=== PATIENT | female | born 1965 | race Caucasian/White ===

== ENCOUNTER 2022-07-01 11:21 | Outpatient (CLI) | payer BC, SELFPAY ==
[2022-07-01 12:04] LABS: Albumin* 4.5 g/dL (3.3-5.0); Chloride* 102 mmol/L (96-114)
[2022-07-01 12:05] LABS: Potassium* 4.3 mmol/L (3.6-5.1); Sodium* 141 mmol/L (135-149)
[2022-07-01 12:07] LABS: Alkaline Phosphatase* 85 U/L (40-150); Aspartate Amino Transferase* 31 U/L (12-35); Bilirubin Total* 0.8 mg/dL (0.1-1.5); Blood Urea Nitrogen* 22 mg/dL (7-30); Carbon Dioxide* 28 mmol/L (20-32); Cholesterol* 207 mg/dL (90-199); Creatinine* 0.6 mg/dL (0.5-1.5); Estimated Glomerular Filt Rate 106 ml/min; Total Protein* 7.6 g/dL (6.0-8.3)
[2022-07-01 12:08] LABS: Alanine Aminotransferase* 41 U/L (4-35); Calcium* 9.8 mg/dL (8.4-10.6); Glucose* 89 mg/dL (60-115); HDL Cholesterol* 50 mg/dL (>=50); LDL Cholesterol Calculated 123 mg/dL (<100); Triglycerides* 170 mg/dL (40-149)
== END 2022-07-01 11:22 | disposition home or self-care (01) ==
PROVIDERS: PCP Family Medicine; Visit Provider Family Medicine
DX: Z01.419 Encounter for gynecological examination (general) (routine) without abnormal findings (principal); I10 Essential (primary) hypertension; E78.5 Hyperlipidemia, unspecified; E66.9 Obesity, unspecified; F41.9 Anxiety disorder, unspecified
CPT/HCPCS: 80053; 80061

== ENCOUNTER 2022-11-02 14:21 | Outpatient (CLI) | payer BC, SELFPAY ==
--- NOTE | 2022-11-02 14:40 | CRLHL7_ITS ---
For Patients: As a result of the Century Cures Act, medical imaging exams and procedure reports are released immediately into your electronic medical record. You may view this report before your referring provider. If you have questions, please contact your health care provider. BILATERAL SCREENING MAMMOGRAM WITH COMPUTER-AIDED DETECTION AND TOMOSYNTHESIS TECHNIQUE: CC and MLO views were obtained. These mammographic images have been obtained using full-field digital technique. These mammographic images were interpreted with the benefit of computer-aided detection. Breast Tomosynthesis was used in this interpretation. COMPARISON FILM: 08/03/21, 04/23/20, 03/12/19. FINDINGS: There are scattered areas of fibroglandular density IMPRESSION: There is no radiographic evidence for malignancy. ASSESSMENT: BI-RADS Category 2: Benign RECOMMENDATION: Routine screening mammogram in 1 year. A lay language report of this examination will be provided to the patient. Jostin Sharpe M.D. Diagnostic/Nuclear Medicine Radiologist [email or web address] NOAM/Dictated by: Jostin Sharpe MD @ 11/03/2022 8:24:00 AM (Electronically Signed)
== END 2022-11-02 14:22 | disposition home or self-care (01) ==
PROVIDERS: PCP Family Medicine; Visit Provider Family Medicine
DX: Z12.31 Encounter for screening mammogram for malignant neoplasm of breast (principal)
CPT/HCPCS: 77063; 77067

== ENCOUNTER 2023-07-24 07:30 | Outpatient (CLI) | payer BC, SELFPAY | END 2023-07-24 07:31 | disposition home or self-care (01) | LOC: NFLDREF 07-28 10:05 | PROVIDERS: PCP Family Medicine; Referring Provider Family Medicine; Visit Provider Family Medicine | DX: I10 Essential (primary) hypertension (principal); E78.5 Hyperlipidemia, unspecified; K76.9 Liver disease, unspecified | CPT/HCPCS: 80053; 80061 ==

== ENCOUNTER 2024-01-18 08:01 | Outpatient (CLI) | payer OTHER, SELFPAY ==
--- OUTSIDE RECORDS SUMMARY | 2024-01-18 08:05 | XMS_ITS | Clinical Summary ---
Author Name Unknown Organization [email or web address] [facility] [employer] [facility] Address [place], [place] [address] Care Team Providers Care Electronics Assembler Name Role Phone Julio Brown MD Unavailable [phone] [facility] Provider Un available Allergies No known active allergies Medications Medication Sig Dispensed Refills Start Date End Date Status cholecalciferol (VITAMIN D-3) 400 unit tablet Take 1 tablet by mouth once daily. 0 02/28/2017 Active Mdjln-0-WFM-EPA-Fish Oil (FISH OIL) 1,000 mg (120 mg-180 mg) cap Take 1 capsule by mouth. 0 02/28/2017 Active glucosamine-chondroiti n, 500-400 mg, (COSAMIN DS 500/400) 500-400 mg cap Take 1 capsule by mouth once daily. 0 08/08/2017 Active ALPRAZolam (XANAX) 0.25 mg tabletIndications:Shefali c disorder without agoraphobia Take 1 tablet by mouth 3 times daily if needed. 90 tablet 08/08/2017 Active hydroCHLOROthiazide (HCTZ) 25 mg tabletIndications:Esse ntial hypertension Take 1 tablet by mouth once daily. 90 tablet 11/14/2018 Active lisinopril (PRINIVIL; ZESTRIL) 10 mg tabletIndications:Esse ntial hypertension Take 1 tablet by mouth once daily. 90 tablet 11/14/2018 Active cholecalciferol (VITAMIN D3) 1,000 unit tablet Take 1 tablet by mouth once daily. 0 04/20/2020 Active Pxylo-7-NHY-EPA-Fish Oil (FISH OIL) 1,000 mg (120 mg-180 mg) cap Take 1 capsule by mouth once daily. 0 04/20/2020 Active Active Problems Problem Noted Date Diagnosed Date Dermatophytosis of foot 01/09/2007 Panic disorder without agoraphobia 11/14/2006 Unspecified essential hypertension 11/14/2006 Resolved Problems Problem Noted Date Diagnosed Date Resolved Date Genital herpes, unspecified 11/14/2006 08/08/2017 Immunizations Name Administration Dates Next Due AMB Influenza, IIV3 (Age >=3 years)(Flu Clinic Only) 06/22/2011,06/27/2008 HepA-HepB (Twinrix) 01/27/2010,07/06/2009,2008 Influenza, IIV3 (Age >=3 years) 07/05/20 13,07/04/2012,06/30/2010, 9 Influenza, IIV4 05/25/2017, 6,07/29/2015, 4 Td (Age >=7 Years) 01/30/2004 Tdap 07/04/2012 Family History Medical History Relation Name Comments Gallbladder disease Brother Hyperlipidemia Father Hypertension Father Other Father MIGRAINES Cancer-breast Mother pre-cancerous cells removed Gallbladder disease Mother Hyperlipidemia Mother Hypertension Mother Other Mother MIGRAINES/breas t bx, pre cancerous Diabetes Other GRANDPARENT Gallbladder disease Sister Hypertension Sister Relation Name Status Comments Brother Father Alive Mother Alive Other Sister Social History Tobacco Use Types Packs/Day Years Used Date Smoking Tobacco: Never Smokeless Tobacco: Never Tobacco Cessation:Counseling Given: Yes Alcohol Use Standard Drinks/Week Comments Yes 0 (1 standard drink = 0.6 oz pur e alcohol) rarely Social Connections Answer Date Recorded Frequency of Communication with Friends and Fami ly Not on file 09/04/2021 Financial Resource Strain Answer Date R ecorded Difficulty of Paying Living Expenses Not on file 09/04/2021 Difficulty of Paying Living Expenses Not on file 09/04/2021 Sex and Gender Information Value Date Recorded Sex Assigned at Not on file Gender Identity Not on file Sexual Orientation Not on file Obstetrics History Para Term AB IAB SAB Ectopic Multiple Livin g Live Births 2 1 1 1 1 Date Outcome GA Total Labor Labor/2nd/3rd Weight Sex Delivery Anes PTL Shantal A1 A5 Name Cl in Para SAB Last Filed Vital Signs Vital Sign Reading Time Taken Comments Blood Pressure 132/98 04/20/2020 10:18 AM CDT Pulse 114 04/20/2020 10:18 AM CDT Temperature 37.3 ??C (99.2 ??F) 04/20/2020 10:18 AM C DT Respiratory Rate - - Oxygen Saturation 100% 08/08/2017 8:48 AM MAINTENANCE PARTS TECHNICIAN Inhaled Oxygen Concentration - - Weight 112.9 kg (249 lb) 04/20/2020 10:18 AM CDT Height 172.7 cm (5' 8) 01/21/2019 10:08 AM CDT Body Mass Index 37.86 01/21/2019 10:08 AM CDT Plan of Treatment Health Maintenance Due Date Last Done Comments Hepatitis C screening for age 18-79 1985 Colonoscopy through age 75 2012 Zoster (shingles) series for age 50+ (1 of 2) 2017 Depression screening for age 12+ 08/08/2018 08/08/2017, 08/02/2016 Mammogram for age 45-75 08/08/2018 08/08/20 17, 08/02/2016, 07/21/2015, Additional history exists BMI (ht and wt on same day) for age 18+ 01/22/2020 01/21/2019, 01/22/2018, 08/08/2017, Additional history exists Tetanus booster 07/04/2022 07/04/2012, 01/30/2004 Lipids for age 45-75 08/08/2022 08/08/2017, 07/26/2016, 07/21/2015, Additional history exists COVID-19 vaccine series (2022- season) 2023 Influenza for age 50-64 05/05/2024 05/25/20 17, 08/02/2016, 07/29/2015, Additional history exists HIV for age 15-65 Completed 05/23/2008 Tdap Completed 07/04/2012 Pneumococcal series for age 6-64 Aged Out No longer eligible based on patient's age to complete this topic Procedures Procedure Name Priority Date/Time Associated Diagnosis Comments LIPID PANEL W REFLEX MEASURED LDL Routine 08/08/2017 9:32 AM MAINTENANCE PARTS TECHNICIAN Lipid screening XR MAMMO BILAT SCREENING Routine 08/08/2017 8:35 AM MAINTENANCE PARTS TECHNICIAN Screening breast examination ANTI HIV 1/2 Routine 05/23/2008 8:55 AM CDT Routine General Medical Examination at a Health Care Facility from Last 3 Months or Most Recently Relevant to Health Maintenance Results * (ABNORMAL) LIPID PANEL W REFLEX MEASURED LDL (08/08/2017 9:32 AM MAINTENANCE PARTS TECHNICIAN) CHOLESTEROL,TOTAL 201(H) 100 - 199 mg/dL 08/08/2017 4:17 PM MAINTENANCE PARTS TECHNICIAN [facility] TRIGLYCERIDES 136 <150 mg/dL 08/08/2017 4:17 PM MAINTENANCE PARTS TECHNICIAN [facility] HDL CHOLESTEROL 53 >40 mg/dL 7 4:17 PM MAINTENANCE PARTS TECHNICIAN [facility] NON-HDL CHOLESTEROL 148(H) <145 mg/dl 08/08/2017 4:17 PM MAINTENANCE PARTS TECHNICIAN [facility] CHOL/HDL RATIO 3.79 <4.50 08/08/2017 4:17 PM MAINTENANCE PARTS TECHNICIAN [facility] LDL CHOLESTEROL 121 <=130 mg/dL 08/08/2017 4:17 PM MAINTENANCE PARTS TECHNICIAN [facility] TR[facility]ORY PROVIDER ORDERED STATUS RANDOM 08/08/2017 4:17 PM MAINTENANCE PARTS TECHNICIAN [facility] Blood BLOOD SPECIMEN / Unknown Venipuncture / Unknown 08/08/2017 9:32 AM MAINTENANCE PARTS TECHNICIAN 08/08/2017 9:32 AM MAINTENANCE PARTS TECHNICIAN Bonnie Wade NP [facility] [address] [place] [address], * XR MAMMO BILAT SCREENING (08/08/2017 8:35 AM MAINTENANCE PARTS TECHNICIAN) Anatomical Region Laterality Modality BREASTS, Breast Left, Breast Right Bilateral Mammography Impressions 08/08/2017 12:20 PM MAINTENANCE PARTS TECHNICIAN ??There is no radiographic evidence for malignancy. ??Recommend annual mammograms. A lay language report of this examination will be provided to the patient. MAMMOGRAM ASSESSMENT: ??ACR 2 Benign Narrative 08/08/2017 12:20 PM MAINTENANCE PARTS TECHNICIAN XR MAMMO BILAT SCREENING [[id number]] CLINICAL HISTORY: ??This is an asymptomatic 52 y.o. patient. INDICATION FOR EXAM: Mammogram Screening. TECHNIQUE: CC & MLO views were obtained. ??This digital study was evaluated with the assistance of Computer-Aided Detection. COMPARISON FILMS: Yes 08/02/16 [facility] 07/21/15 [facility] FINDINGS: ??Mammographically, the breast tissue has scattered fibroglandular densities. ??No suspicious masses or microcalcifications. ?? Benign appearing calcifications within both breasts. Bonnie Wade NP MAMMO * ANTI HIV 1/2 (05/23/2008 8:55 AM CDT) ANTI HIV 1/2 Non-reacti ve [facility] Blood specimen (specimen) BLOOD SPECIMEN / Unknown 05/23/2008 8:55 AM CDT 05/23/2008 8:54 AM CDT Bonnie Wade NP SEND OUTS [facility] INTERNAL ZIP [address] [address] from Last 3 Months or Most Recently Relevant to Health Maintenance Care Teams Electronics Assembler Relationship Specialty Start Date End Date Stephanie [facility] Phys Of PCP - General 01/17/19 Julio Brown MD Surgery - General 08/08/17
--- NOTE | 2024-01-18 08:15 | MM_ITS ---
Patient: JUSTO ALVES Facility:?[facility] Patient ID:?[id number] Site Patient ID:?[id number] Site :?[id number] Study:?XRay-Breast Bilateral 3D W/CAD-01/18/2024 8:53:00 AM Ordering Physician:Petr Final Report: BILATERAL DIGITAL SCREENING MAMMOGRAM WITH TOMOSYNTHESIS AND COMPUTER-AIDED DETECTION CLINICAL HISTORY: Routine screening exam. COMPARISON: 11/02/2022, 08/03/2021, 04/23/2020, 03/12/2019. TECHNIQUE: Digital mammogram in CC and MLO projections including computer-aided detection (CAD). Tomosynthesis utilized. BREAST COMPOSITION: There are areas of scattered fibroglandular density. FINDINGS: RIGHT Breast: No suspicious findings. LEFT Breast: Grouped microcalcifications are present within the upper outer quadrant 12 cm from the nipple. IMPRESSION: LEFT breast calcifications. RECOMMENDATIONS: Spot compression magnification views of the calcifications in the LEFT breast in CC and ML projections. BI-RADS Category 0: Incomplete: Need additional Imaging Evaluation and/or Prior Mammograms for Comparison [facility] will contact the patient for follow-up. A lay language report of this examination will be provided to the patient. Dictated by Misael Motta MD @ 01/18/2024 10:24:24 AM kavita/Dictated by: Misael Motta MD @ 01/18/2024 10:24:00 AM Signed by:?Misael Motta MD @01/18/2024 12:27:41 PM (Electronic Signature)
== END 2024-01-18 08:02 | disposition home or self-care (01) ==
LOC: MAMMO 08:04
PROVIDERS: PCP Family Medicine; Visit Provider Family Medicine
DX: Z12.31 Encounter for screening mammogram for malignant neoplasm of breast (principal); N63.20 Unspecified lump in the left breast, unspecified quadrant
CPT/HCPCS: 77063; 77067

== ENCOUNTER 2024-02-05 08:26 | Outpatient (CLI) | payer OTHER, SELFPAY ==
--- NOTE | 2024-02-05 | CRLHL7_ITS ---
For Patients: As a result of the Cures Act, medical imaging exams and procedure reports are released immediately into your electronic medical record. You may view this report before your referring provider. If you have questions, please contact your health care provider. PLEASE SEE DIGITAL DIAGNOSTIC LEFT MAMMOGRAM PERFORMED SAME DAY CRL:vu womack/Dictated by: Misael Motta MD @ 02/05/2024 10:30:00 AM (Electronically Signed)
--- OUTSIDE RECORDS SUMMARY | 2024-02-05 08:28 | XMS_ITS | Clinical Summary ---
Author Organization [employer] [facility] [employer] [facility] Address [place], [place] [address] Care Team Providers Care Technical Training Manager Name Role Phone Julio Brown MD Unavailable [phone] [facility] Phys Of Primary Care Provider Un available Allergies No known active allergies Medications Medication Sig Dispensed Refills Start Date End Date Status cholecalciferol (VITAMIN D-3) 400 unit tablet Take 1 tablet by mouth once daily. 0 02/28/2017 Active Cmxpb-5-YFW-EPA-Fish Oil (FISH OIL) 1,000 mg (120 mg-180 [...] by mouth once daily. 0 04/20/2020 Active Rygho-0-MWM-EPA-Fish Oil (FISH OIL) 1,000 mg (120 mg-180 [...] - Oxygen Saturation 100% 08/08/2017 8:48 AM DIET ASSISTANT Inhaled Oxygen Concentration - - Weight 112.9 [...] REFLEX MEASURED LDL Routine 08/08/2017 9:32 AM DIET ASSISTANT Lipid screening XR MAMMO BILAT SCREENING Routine 08/08/2017 8:35 AM DIET ASSISTANT Screening breast examination ANTI HIV 1/2 Routine 05/23/2008 8:55 AM CDT Routine General Medical Examination at a Health Care Facility from Last 3 Months or Most Recently Relevant to Health Maintenance Results * (ABNORMAL) LIPID PANEL W REFLEX MEASURED LDL (08/08/2017 9:32 AM DIET ASSISTANT) CHOLESTEROL,TOTAL 201(H) 100 - 199 mg/dL 08/08/2017 4:17 PM DIET ASSISTANT [facility] [place] [facility] TRAL [facility]ATORY TRIGLYCERIDES 136 <150 mg/dL 08/08/2017 4:17 PM DIET ASSISTANT [facility] TR[facility] HDL CHOLESTEROL 53 >40 mg/dL 7 4:17 PM DIET ASSISTANT [facility] NON-HDL CHOLESTEROL 148(H) <145 mg/dl 08/08/2017 4:17 PM DIET ASSISTANT [facility] CHOL/HDL RATIO 3.79 <4.50 08/08/2017 4:17 PM DIET ASSISTANT [facility] LDL CHOLESTEROL 121 <=130 mg/dL 08/08/2017 4:17 PM DIET ASSISTANT [facility] TR[facility] PROVIDER ORDERED STATUS RANDOM 08/08/2017 4:17 PM DIET ASSISTANT [facility] Blood BLOOD SPECIMEN / Unknown Venipuncture / Unknown 08/08/2017 9:32 AM DIET ASSISTANT 08/08/2017 9:32 AM DIET ASSISTANT Bonnie Wade NP [facility] [address] [place] [address], * XR MAMMO BILAT SCREENING (08/08/2017 8:35 AM DIET ASSISTANT) Anatomical Region Laterality Modality BREASTS, Breast Left, Breast Right Bilateral Mammography Impressions 08/08/2017 12:20 PM DIET ASSISTANT ??There is no radiographic evidence for malignancy. ??Recommend annual mammograms. A lay language report of this examination will be provided to the patient. MAMMOGRAM ASSESSMENT: ??ACR 2 Benign Narrative 08/08/2017 12:20 PM DIET ASSISTANT XR MAMMO BILAT SCREENING [[id number]] CLINICAL HISTORY: ??This is an asymptomatic 52 y.o. patient. INDICATION FOR EXAM: Mammogram Screening. TECHNIQUE: CC & MLO views were obtained. ??This digital study was evaluated with the assistance of Computer-Aided Detection. COMPARISON FILMS: Yes 08/02/16 [facility] 07/21/15 [facility] FINDINGS: ??Mammographically, the breast tissue has scattered fibroglandular densities. ??No suspicious masses or microcalcifications. ?? Benign appearing calcifications within both breasts. Bonnie Wade NP MAMMO * ANTI HIV 1/2 (05/23/2008 8:55 AM CDT) ANTI HIV 1/2 Non-reacti ve [facility] Blood specimen (specimen) BLOOD SPECIMEN / Unknown 05/23/2008 8:55 AM CDT 05/23/2008 8:54 AM CDT Bonnie Wade NP SEND OUTS [facility] INTERNAL ZIP [address] [place] [id number] from Last 3 Months or Most Recently Relevant to Health Maintenance Care Teams Technical Training Manager Relationship Specialty Start Date End Date Stephanie [facility] Phys Of PCP - General 01/17/19 Julio Brown MD Surgery - General 08/08/17
--- NOTE | 2024-02-05 08:45 | CRLHL7_ITS ---
For Patients: As a result of the Century Cures Act, medical imaging exams and procedure reports are released immediately into your electronic medical record. You may view this report before your referring provider. If you have questions, please contact your health care provider. DIGITAL DIAGNOSTIC LEFT MAMMMOGRAM USING COMPUTER-AIDED DETECTION LEFT BREAST ULTRASOUND CLINICAL HISTORY: LEFT breast microcalcifications with asymmetry. COMPARISON: 01/18/2024, 11/02/2022, 08/03/2021, 04/23/2020. TECHNIQUE: Digital LEFT mammogram in three projections with computer-aided detection. Real-time ultrasound imaging of LEFT breast with imaging documentation. Scanning was performed by both the technologist and the radiologist. BREAST COMPOSITION: There are areas of scattered fibroglandular density. FINDINGS: Spot magnification CC/ML LEFT breast mammogram images submitted along with an open true lateral LEFT breast mammogram. There are a few scattered punctate microcalcifications within the upper outer quadrant 12 cm from the nipple which do not demonstrate layering. These are new compared to prior studies. Associated asymmetric density is present which is possibly similar to prior studies although may be slightly more prominent. Targeted LEFT breast ultrasound performed. At 2 o`clock 12 cm from the nipple there is an area slightly heterogeneous tissue which may correspond with the mammogram although it is not definitive and not measurable. IMPRESSION: Indeterminate small grouping of calcifications LEFT breast upper outer quadrant 12 cm from the nipple with associated density. RECOMMENDATIONS: Stereotactic-guided biopsy recommended. Results and recommendations discussed with the patient. BI-RADS Category 4: Suspicious A lay language report of this examination will be provided to the patient. Dictated by Misael Motta MD @ 02/05/2024 10:30:18 AM jj/Dictated by: Misael Motta MD @ 02/05/2024 10:30:00 AM (Electronically Signed)
== END 2024-02-05 08:27 | disposition home or self-care (01) ==
LOC: MAMMO 08:26
PROVIDERS: PCP Family Medicine; Visit Provider Family Medicine
DX: R92.0 Mammographic microcalcification found on diagnostic imaging of breast (principal)
CPT/HCPCS: 76642; 77065; G0279

== ENCOUNTER 2024-08-05 11:20 | Outpatient (CLI) | payer OTHER, SELFPAY ==
--- OUTSIDE RECORDS SUMMARY | 2024-08-06 19:33 | XMS_ITS | Clinical Summary ---
Author Organization [facility] Address [address] [place] [address] Care Team Providers Care Distribution Tech Name Role Phone None Reported, Pcp Primary Care Provider Unavail able Source Comments Patient records contain information from all sites at [facility]. For routine questions regarding patient records, call [phone] during business hours, M-F 8:00 AM - 5:00 PM Central Time. Record requests for emergency care only can be directed to [phone] at any time.[facility] Allergies No known active allergies Medications * This document contains information received from the source organization and may not represent a complete record from that organization. lisinopriL 10 mg tablet Take 1 tablet by mouth daily. 11/14/2018 Active hydroCHLOROthia zide (HydroDiuril) 25 mg tablet Take 1 tablet by mouth daily. 11/14/2018 Active glucosamine-cho ndroitin 500-400 mg per capsule Take 1 capsule by mouth daily. 08/08/2017 Active DOCOSAHEXAENOIC ACID ORAL Take 1 capsule by mouth daily. 04/20/2020 Active cholecalciferol , vitamin D3, 25 mcg (1,000 Unit) tablet Take 1 tablet by mouth daily. 04/20/2020 Active ALPRAZolam (Xanax) 0.25 mg tablet Take 0.25 mg by mouth 3 (three) times a day as needed. 08/08/2017 Active MAGNESIUM CITRATE ORAL Take 100 mg by mouth once. Active ibuprofen 200 mg tablet Take 200 mg by mouth every 6 (six) hours as needed for pain. Active capsicum, cayenne, 450 mg capsule Take by mouth daily. Active tamoxifen (Nolvadex) 20 mg tablet Take 1 tablet (20 mg total) by mouth daily. Swallow whole; do not split, chew, or crush. Take with or without food. 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 Date Type Department Care Team Description 06/10/2024 4:00 PM CDT Telemedicine Breast Diagnostic Clinic in [place], [place] [address] [place] [address] Yamini Raines M.D. Other Benign Mammary Dysplasias (Atypical Ductal Hyperplasia) Of Left Breast (Primary Dx); Atypical Lobular Hyperplasia Breast; Screening Mammogram High Risk Patient 06/06/2024 7:17 PM CDT - 06/06/2024 11:59 PM CDT Hospital Encounter Department of Radiology, [facility], in [place], [place] [address] [place] [address] Yamini Raines M.D. Other Benign Mammary Dysplasias (Atypical Ductal Hyperplasia) Of Left Breast; Cancer Breast Family History Discharge Disposition: Home or Self Care 05/07/2024 Documentation Division of Breast and Melanoma Surgical Oncology in [place], [place] [address] [place] [address] Santa Oakley M.D. Follow-up from Last 3 Months Family History Medical History Relation Name Comments Cancer Father's Brother 2 unknown t ype Lung cancer Father's Sister 1 unsure abo ut smoking hx Skin cancer Maternal Grandmother non-dorian anoma Breast CA Add'l Onset Mother Breast cancer Mother Lung cancer Paternal Grandmother smoker Relation Name Status Comments Brother Alive Daughter Alive Father Alive Father's Brother 1 Father's Brother 2 Father's Sister 1 Father's Sister 2 Alive Maternal Grandfather (Age 80-84) Maternal Grandmother (Age 99) Mother Alive no GT Mother's Brother Alive Mother's Sister 1 Alive Mother's Sister 2 Niece/Nephew 1 Alive Niece/Nephew 2 Alive Paternal Grandfather (Age 50s) Paternal Grandmother (Age 70s) Sister Alive Social History Tobacco Use Types Packs/Day Years Used Date Smoking Tobacco: Never Passive Smoke Exposure: Past Smokeless Tobacco: Never Passive Exposure Comments:ch ildhood aduthood x2 weekly Alcohol Use Standard Drinks/Week Comments Yes 0 (1 standard drink = 0.6 oz pur e alcohol) rare [facility] Utilities Answer Date Recorded In the past 12 months has th e electric, gas, oil, or water company threatened to shut off services in your home? No 03/13/2024 Exercise Vital Sign Answer Date Recorde d On average, how many days pe r week do you engage in moderate to strenuous exercise (like a brisk walk)? 2 days 03/13/2024 On average, how many minutes do you engage in exercise at this level? 20 min 03/13/2024 Hunger Vital Sign Answer Date Recorded Within the past 12 months, y ou worried that your food would run out before you got the money to buy more. Never true 03/13/20 Within the past 12 months, t he food you bought just didn't last and you didn't have money to get more. Never true 03/13/2024 PRAPARE - Transportation Answer Date Re corded In the past 12 months, has l ack of transportation kept you from medical appointments or from getting medications? No 03/04 In the past 12 months, has l ack of transportation kept you from meetings, work, or from getting things needed for daily living? No 03/13/2024 Nutrition Answer Date Recorded On average, how many serving s of fruits and vegetables do you eat per day (serving size is equal to 1 cup or approximately the size of a tennis ball)? 0-2 03/13/2024 Dental Answer Date Recorded Dental: Regular Dentist Yes 03/13/20 Employment Answer Date Recorded Employment status Employed and actively working without restrictions 03/13/2024 Housing Stability Answer Date Recorded What is your living situation today? 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 Gender Identity Female 03/12/2024 3:56 PM CDT Sexual Orientation Straight 03/12/2024 3: 56 PM CDT Last Filed Vital Signs Vital Sign Reading Time Taken Comments Blood Pressure 138/79 04/04/2024 6:45 PM CDT Pulse 90 04/04/2024 6:45 PM CDT Temperature 36.4 C (97.5 F) 04/04/2024 6:05 PM CDT Respiratory Rate 14 04/04/2024 6:05 PM CDT Oxygen Saturation 93% 04/04/2024 6:05 PM CDT Inhaled Oxygen Concentration - - Weight 109 kg (240 lb 1.3 oz) 04/04/2024 9:11 AM CDT Height 171.5 cm (5' 7.52) 04/04/2024 9:11 AM CD T Body Mass Index 37.03 04/04/2024 9:11 AM CDT Plan of Treatment Health Maintenance Due Date Last Done Comments CT Colonography 1967 Cologuard 1967 Colonoscopy 1967 Colorectal Cancer Screening 1967 FIT 1967 HIV Screening 1967 Hepatitis C Screening 1967 Lipid (Cholesterol) Screening 1967 Visit: Chronic Disease, age 18+ 1967 Depression Screening (Annual PHQ-2) 09/04/2023 COVID-19 Vaccine ( season) 2024 09/24/2021, 12/12/2020, 11/21/2020 Influenza Vaccine (#1) 2024 , 07/07/2022, 06/04/2021, Additional history exists Creatinine Level (Kidney Function Test) 03/18/2025 03/18/2024 Office Visit for Blood Pressure Check / Re-check 03/18/2025 03/18/2024 Potassium Level 03/18/2025 03/18/2024 Sodium Level 03/18/2025 03/18/2024 Mammogram 06/06/2025 06/06/2024, 02/02, 02/12/2024, Additional history exists Fasting Glucose for Diabetes Screening 03/18/2027 03/18/2024 DTaP,Tdap,and Td Vaccines (3 - Td or Tdap) 07/07/2032 07/07/2022, 07/04/2012, 01/30/2004 Hepatitis B Vaccines Completed 01/27/2010, 07/06/2009, 06/03/2009 Zoster Vaccines Completed 09/21/2020, 02/19/2020 IPV Vaccines Aged Out No longer eligi ble based on patient's age to complete this topic Pneumococcal vaccine (0-64 years) Aged Out No longer eligible based on patient's age to complete this topic Medical Devices Implanted Type Area Manager Camp Device Identifier Shelf Expiration Date Model / Serial / Lot Imaging Marker Imaging Marker Left: Breast Procedures Procedure Name Priority Date/Time Associated Diagnosis Comments MR BREAST BILATERAL WITHOUT AND WITH IV CONTRAST RAD - Routine (most inpatients and all outpatients) 06/06/2024 8:06 PM CDT 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 Interval lumpectomy changes within the upper outer left breast. 2. No MRI findings of malignancy in either breast. 3. T2 hyperintense lesion in the left hepatic lobe is indeterminant, but likely represents a hemangioma. RECOMMENDATION: Screening as Clinically Appropriate 1. Screening as appropriate given personal risk of breast cancer. 2. Hepatic ultrasound could be performed for further characterization of the lesion in the left hepatic lobe. ASSESSMENT: BI-RADS: 2: Benign. 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 Final pathology showed ADH and ALH. HORMONAL STATUS: Status post hysterectomy. Currently on tamoxifen. COMPARISON: Prior exam(s) were available and reviewed for comparison. TECHNIQUE: Dynamic enhanced protocol using IV contrast administration with T1 and T2- weighted images and CAD image analysis. FIBROGLANDULAR TISSUE: b. Scattered fibroglandular tissue. BACKGROUND PARENCHYMAL ENHANCEMENT: c. Moderate FINDINGS: RIGHT BREAST: No MRI findings of malignancy in the right breast. Scattered benign foci of background parenchymal enhancement. RIGHT AXILLA: No right axillary lymphadenopathy. LEFT BREAST: No MRI findings of malignancy in the left breast. Interval lumpectomy within the upper outer left breast middle to posterior depth with associated thin peripheral enhancement and postoperative blood products anteriorly and medially. No findings concerning for residual disease. Intramammary lymph node within the inferior lower left breast anterior depth as seen on prior mammograms (postcontrast axial image 113). LEFT AXILLA: No left axillary lymphadenopathy. CHEST WALL: No internal mammary lymphadenopathy. OTHER: Small hiatal hernia. 1.2 cm T2 hyperintense enhancing lesion in the left hepatic lobe likely represents a hemangioma (series 303, image 112; series 2, image 40). Procedure Note Rowena Lara M.D. - 06/07/2024 EXAM: MR BREAST BILATERAL WITHOUT AND WITH IV CONTRAST INDICATION: Elevated risk screening HISTORY: 59-year-old female with prior history of left breast ADH and ALHbordering on DCIS in the upper outer left breast posterior depth statuspost lumpectomy 04/04/2024. Final pathology showed ADH and ALH. HORMONAL STATUS: Status post hysterectomy. Currently on tamoxifen. COMPARISON: Prior exam(s) were available and reviewed for comparison. TECHNIQUE: Dynamic enhanced protocol using IV contrast administrationwith T1 and T2-weighted images and CAD image analysis. FIBROGLANDULAR TISSUE: b. Scattered fibroglandular tissue. BACKGROUND PARENCHYMAL ENHANCEMENT: c. Moderate FINDINGS: RIGHT BREAST: No MRI findings of malignancy in the right breast.Scattered benign foci of background parenchymal enhancement. RIGHT AXILLA: No right axillary lymphadenopathy. LEFT BREAST: No MRI findings of malignancy in the left breast. Intervallumpectomy within the upper outer left breast middle to posterior depthwith associated thin peripheral enhancement and postoperative bloodproducts anteriorly and medially. No findings concerning for residual disease. Intramammary lymph node withinthe inferior lower left breast anterior depth as seen on prior mammograms(postcontrast axial image 113). LEFT AXILLA: No left axillary lymphadenopathy. CHEST WALL: No internal mammary lymphadenopathy. OTHER: Small hiatal hernia. 1.2 cm T2 hyperintense enhancing lesion in theleft hepatic lobe likely represents a hemangioma (series 303, image 112;series 2, image 40). IMPRESSION: 1. Interval lumpectomy changes within the upper outer left breast. 2. No MRI findings of malignancy in either breast. 3. T2 hyperintense lesion in the left hepatic lobe is indeterminant, butlikely represents a hemangioma. RECOMMENDATION: Screening as Clinically Appropriate 1. Screening as appropriate given personal risk of breast cancer. 2. Hepatic ultrasound could be performed for further characterization ofthe lesion in the left hepatic lobe. ASSESSMENT: BI-RADS: 2: Benign. Yamini Raines M.D. IMElvin MRI PROCEDURES Final R esult * Comprehensive Metabolic Panel (03/18/2024 9:07 AM CDT) Potassium, S 4.0 3.6 - 5.2 mmol/L 03/18/2024 11:24 AM CDT DTL Sodium, S 140 135 - 145 mmol/L 03/18/2024 11:24 AM CDT DTL Chloride, S 103 98 - 107 mmol/L 03/18/2024 11:24 AM CDT DTL Bicarbonate, S 26 22 - 29 mmol/L 03/18/2024 11:24 AM CDT DTL Anion Gap 11 7 - 15 03/18/2024 11:24 AM CDT DTL BUN (Blood Urea Nitrogen), S 16 6 - 21 mg/dL 03/18/2024 11:24 AM CDT DTL Creatinine 0.77 0.59 - 1.04 mg/dL 03/18/2024 11:24 AM CDT DTL Estimated GFR (eGFR) >90 >=60 mL/min/BS A 03/18/2024 11:24 AM CDT DTL Comment: Estimated GFR calculated using the 2020 CKD_EPI creatinine equation. Calcium, Total, S 9.5 8.6 - 10.0 mg/dL 03/18/2024 11:24 AM CDT DTL Glucose, S 98 70 - 140 mg/dL 03/18/2024 11:24 AM CDT DTL Protein, Total, S 7.2 6.3 - 7.9 g/dL 03/18/2024 11:24 AM CDT DTL Albumin, S 4.3 3.5 - 5.0 g/dL 03/18/2024 11:24 AM CDT DTL Aspartate Aminotransferase (AST), S 33 8 - 43 U/L 03/18/2024 11:24 AM CDT DTL Alkaline Phosphatase, S 80 35 - 104 U/L 03/18/2024 11:24 AM CDT DTL Alanine Aminotransferase (ALT), S 39 7 - 45 U/L 03/18/2024 11:24 AM CDT DTL Bilirubin, Total, S 0.3 0.0 - 1.2 mg/dL 03/18/2024 11:24 AM CDT DTL Blood (Blood, Venous) 03/18/2024 9:07 AM CDT 03/18/2024 9:59 AM CDT Yamini Raines M.D. LAB BLOOD ADD-ON Final Res ult [facility] [address] [place] [address], [facility] DTFormerly named [facility] [address] [place] [address] from Last 3 Months or Most Recently Relevant to Health Maintenance Insurance [employer] [facility] Advance Directives For more information, please contact: [phone] * Full Code (Latest Code Status on File) Date Activated Date Inactivated Comments 04/04/2024 9:27 AM 04/04/2024 9:14 PM Question Answer Comments Full Code: Not Discussed Due to: Not medically appropriate Care Teams Distribution Tech Relationship Specialty Start Date End Date None Reported, Pcp PCP - General 07/12/24
--- OUTSIDE RECORDS SUMMARY | 2024-08-06 19:34 | XMS_ITS | Encounter Summary ---
Author Organization [facility] Address [address] [place] [id number] Care Team Providers Care Promotions Coordinator Name Role Phone Elsewhere, Pcp Primary Care Provider Unavailabl e Reason for Visit * Reason Comments Follow-up Encounter Details Date Type Department Care Team (Late st Contact Info) Description 05/07/2024 Documentation Division of Breast and Melanoma Surgical Oncology in [place], [place] [address] [place] [phone] Santa Oakley M.D. [address] [place] [phone] Follow-up Social History Tobacco Use Types Packs/Day Years Used Date Smoking Tobacco: Never Passive Smoke Exposure: Past Smokeless Tobacco: Never Passive Exposure Comments:ch ildhood aduthood x2 weekly Alcohol Use Standard Drinks/Week Comments Yes 0 (1 standard drink = 0.6 oz pur e alcohol) rare [facility] Utilities Answer Date Recorded In the past 12 months has [employer], gas, oil, or water [employer] threatened to shut off services in your [...] your living situation today? 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 - 05/07/2024 3:54 PM CDT 30 Day Breast Surgery Follow-Up: Source of information: Chart review and phone call to patient Did patient have any complication(s)?: No documented in this encounter Plan of Treatment Not on file documented as of this encounter Visit Diagnoses Not on filedocumented in this encounter Care Teams Promotions Coordinator Relationship Specialty Start Date End Date Elsewhere, Pcp PCP - General Internal Medicine 04/04/24 07/11/24 documented as of this encounter
--- OUTSIDE RECORDS SUMMARY | 2024-08-06 19:34 | XMS_ITS ---
Author Organization [facility] Address [address] [place] [address] Care Team Providers Care Supervisor Park Workers Name Role Phone Unavailable Unavailable Unavailable Surgery Details Not on file Complications Check Surgery Details section. Procedure Estimated Blood Loss Check Surgery Details section. Procedure Findings Check Surgery Details section. Procedure Specimens Taken Check Surgery Details section.
--- OUTSIDE RECORDS SUMMARY | 2024-08-06 19:34 | XMS_ITS | Encounter Summary ---
Author Organization [facility] Address [address] [place] [id number] Care Team Providers Care Legal Billing Specialist Name Role Phone Elsewhere, Pcp Primary Care Provider Unavailabl e Reason for Visit * Reason Onset Date Comments Follow-up 04/15/2024 Encounter Details Date Type Department Care Team (Late st Contact Info) Description 04/15/2024 Clinical Communication Division of Breast and Melanoma Surgical Oncology in [place], [place] [address] [place] [phone] Santa Oakley M.D. [address] [place] [phone] Follow-up Social History Tobacco Use Types Packs/Day Years Used Date Smoking Tobacco: Never Passive Smoke Exposure: Past Smokeless Tobacco: Never Passive Exposure Comments:ch ildhood aduthood x2 weekly Alcohol Use Standard Drinks/Week Comments Yes 0 (1 standard drink = 0.6 oz pur e alcohol) rare [facility] Utilities Answer Date Recorded In the past 12 months has e electric, gas, oil, or water company [...] your living situation today? 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
--- OUTSIDE RECORDS SUMMARY | 2024-08-06 19:34 | XMS_ITS | Referral Summary ---
Author Organization [facility] Address [address] [place] [id number] Care Team Providers Care Physician Anesthesiologist Name Role Phone None Reported, Pcp Primary Care Provider Unavail able Source Comments Patient records contain information from all sites at [facility]. For routine questions regarding patient records, call [phone] during business hours, M-F 8:00 AM - 5:00 PM Central Time. Record requests for emergency care only can be directed to [phone] at any time.[facility] Encounters * This document contains information received from the source organization and may not represent a complete record from that organization. Date Type Department Care Team Description 06/10/2024 4:00 PM CDT Telemedicine Breast Diagnostic Clinic in [place], [place] [address] [place] [address] Yamini Raines M.D. Other Benign Mammary Dysplasias (Atypical Ductal Hyperplasia) Of Left Breast (Primary Dx); Atypical Lobular Hyperplasia Breast; Screening Mammogram High Risk Patient 06/06/2024 7:17 PM CDT - 06/06/2024 11:59 PM CDT Hospital Encounter Department of Radiology, [facility], in [place], [place] [address] [place] [address] Yamini Raines M.D. 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 Follow-up from Last 3 Months Allergies No known active allergies Medications * [...] Date Atypical Ductal Proliferation Breast 03/18/2024 06/10/2024 Social History Tobacco Use Types Packs/Day Years Used Date Smoking Tobacco: Never Passive Smoke Exposure: Past Smokeless Tobacco: Never Passive Exposure Comments:ch ildhood aduthood x2 weekly Alcohol Use Standard Drinks/Week Comments Yes 0 (1 standard drink = 0.6 oz pur e alcohol) rare [facility] Utilities Answer Date Recorded In the past 12 months has [employer], gas, oil, or water [employer] threatened to shut off services in your [...] money to buy more. Never true 03/13/20 24 Within the past 12 months, t he [...] your living situation today? 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 Yamini Raines M.D. IM MRI PROCEDURES Final R esult * Comprehensive [...] M.D. LAB BLOOD ADD-ON Final Res ult [facility] [address] [place] [address], [facility] [address] [place] [address] from Last 3 Months or Most Recently Relevant to Health Maintenance [facility] Advance Directives For more information, please contact: [phone] * Full Code (Latest Code Status on File) Date Activated Date Inactivated Comments 04/04/2024 9:27 AM 04/04/2024 9:14 PM Question Answer Comments Full Code: Not Discussed Due to: Not medically appropriate Care Teams Physician Anesthesiologist Relationship Specialty Start Date End Date None Reported, Pcp PCP - General 07/12/24
--- OUTSIDE RECORDS SUMMARY | 2024-08-06 19:34 | XMS_ITS | Encounter Summary ---
Author Organization [facility] Address [address] [place] [address] Care Team Providers Care Jalousies Installer Name Role Phone Elsewhere, Pcp Primary Care Provider Unavailabl e Reason for Referral * Outpatient (Routine) - Authorized Specialty Diagnoses / Procedures Referred By Beba mcgrath Referred To Contact Breast Clinic Yamini Raines M.D. [address] [place] [address] Phone: tel: fax: [facility] Referral ID Status Reason Start Date Expiration Date V isits Requested Visits Authorized [id number] Authorized 06/10/2024 12/10/2025 1 1 * Outpatient (Routine) - Authorized Specialty Diagnoses / Procedures Referred By Beba mcgrath Referred To Contact Diagnoses Screening Mammogram High Risk Patient Procedures BI Breast Screening Bilateral with Tomosynthesis Yamini Raines M.D. [address] [place] [address] Phone: tel: fax: [facility] Referral ID Status Reason Start Date Expiration Date V isits Requested Visits Authorized [id number] Authorized 06/10/2024 06/10/2025 1 1 Reason for Visit * Outpatient (Routine) - Closed Specialty Diagnoses / Procedures Referred By Beba mcgrath Referred To Contact Breast Clinic Yamini Raines M.D. [address] [place] [address] Phone: tel: fax: [facility] Referral ID Status Reason Start Date Expiration Date Visits Re quested Visits Authorized [id number] Closed 04/16/2024 10/16/2025 1 1 Encounter Details Date Type Department Care Team (Late st Contact Info) Description 06/10/2024 4:00 PM CDT Telemedicine Breast Diagnostic Clinic in [place], [place] [address] [place] [phone] Yamnii Raines M.D. 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); Atypical Lobular Hyperplasia Breast; Screening Mammogram High Risk Patient Social History Tobacco Use Types Packs/Day Years Used Date Smoking Tobacco: Never Passive Smoke Exposure: Past Smokeless Tobacco: Never Passive Exposure Comments:ch ildhood aduthood x2 weekly Alcohol Use Standard Drinks/Week Comments Yes 0 (1 standard drink = 0.6 oz pur e alcohol) rare [facility] Utilities Answer Date Recorded In the past 12 months has th e [employer], gas, oil, or water [employer] threatened to shut off services in your [...] Date Recorded Dental: Regular Dentist Yes 03/13/20 24 Employment Answer Date Recorded Employment status Employed and actively working without restrictions 03/13/2024 Housing Stability Answer Date Recorded What is your living situation today? 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 - 06/10/2024 4:00 PM CDT SUBJECTIVE CHIEF COMPLAINT / REASON FOR VISIT Recheck visit HISTORY OF PRESENT ILLNESS Ms. Romero is a very pleasant 59 y.o. woman seen via video today for follow up due to her history of ADH and ALH. She completed surgery and has done well since that time. During our last visit, we recommended she start tamoxifen and I gave her a prescription for 20 mg daily. She has been slightly concerned aboutthe increased risk of blood clots and has not yet started the medication. She had an MRI completed last week that was negative. She has no new breast concerns. ASSESSMENT / PLAN #1 History of left breast ADH diagnosed in 2023 #2 History of left breast ALH diagnosed in 2023 #3 Family history of breast cancer Ms. Romero was seen via video today to review her recent breast MRI. It was negative and a repeat MRI in 1 year is recommended. She will be due for a mammogram and clinic visit in 6 months. I did reiterate the benefits of tamoxifen and she is interested in starting medication at this time. We discus sed that if she has significant side effects, we could trial 10 mg every other day and she will reach out with side effects. BREAST CLINIC FOLLOW-UP RECOMMENDATIONS: Bilateral screening mammogram next due in December,. Breast MRI next due in June,. Clinical breast exam next due in December,. Breast self-awareness encouraged and the patient is advised to seek medical attention for any breast related concerns. PATIENT EDUCATION: Ready to learn, no apparent learning barriers were identified; learning preferences include listening. Explained diagnosis and treatment plan; patient expressed understanding of the content. documented in this encounter Plan of Treatment Scheduled Orders Name Type Priority Associated Diagnoses Order Schedule BI Breast Screening Bilateral with Tomosynthesis Imaging RAD - Routine (most inpatients and all outpatients) Screening Mammogram High Risk Patient Expected: 12/09/2024, Expires: 09/10/2025 Scheduled Referrals Name Type Priority Associated Diagnoses Orde r Schedule Breast Clinic office visit (clinic) Outpatient Referral Routine Expected: 12/09/2024, Expires: 09/10/2025 documented as of this encounter Visit Diagnoses Diagnosis Other Benign Mammary Dysplasias (Atypical Ductal Hyperplasia) Of Left Breast- Primary Atypical Lobular Hyperplasia Breast Screening Mammogram High Risk Patient documented in this encounter Care Teams Jalousies Installer Relationship Specialty Start Date End Date Elsewhere, Pcp PCP - General Internal Medicine 04/04/24 07/11/24 documented as of this encounter
--- OUTSIDE RECORDS SUMMARY | 2024-08-06 19:34 | XMS_ITS | Clinical Summary ---
Author Organization [facility] Address [place], [place] [address] Care Team Providers Care Newsstand Vendor Name Role Phone Julio Brown MD Unavailable [phone] [facility] Phys Of Primary Care Provider Un available Allergies No known active allergies Medications Medication Sig Dispensed Refills Start Date End Date Status cholecalciferol (VITAMIN D-3) 400 unit tablet Take 1 tablet by mouth once daily. 0 02/28/2017 Active Xtvie-8-WUS-EPA-Fish Oil (FISH OIL) 1,000 mg (120 mg-180 [...] by mouth once daily. 0 04/20/2020 Active Fggxs-8-YLM-EPA-Fish Oil (FISH OIL) 1,000 mg (120 mg-180 [...] Outcome GA Total Labor Labor/2nd/3rd Weight Sex Type Anes PTL Shantal A1 A5 Name Clin Para SAB Last Filed Vital Signs Vital Sign Reading Time Taken Comments Blood Pressure 132/98 04/20/2020 10:18 AM CDT Pulse 114 04/20/2020 10:18 AM CDT Temperature 37.3 C (99.2 F) 04/20/2020 10:18 AM CDT Respiratory Rate - - Oxygen Saturation 100% 08/08/2017 8:48 AM PRODUCTION MECHANIC Inhaled Oxygen Concentration - - Weight 112.9 [...] 07/21/2015, Additional history exists COVID-19 vaccine series (2023- season) 2024 09/24/2021, 12/12/2020, 11/21/2020 Influenza for age 50-64 05/05/2024 05/25/20 17, 08/02/2016, 07/29/2015, Additional history exists HIV for age 15-65 Completed 05/23/2008 Tdap Completed 07/04/2012 Pneumococcal series for age 6-64 Aged Out No longer eligible based on patient's age to complete this topic Procedures Procedure Name Priority Date/Time Associated Diagnosis Comments LIPID PANEL W REFLEX MEASURED LDL Routine 08/08/2017 9:32 AM PRODUCTION MECHANIC Lipid screening XR MAMMO BILAT SCREENING Routine 08/08/2017 8:35 AM PRODUCTION MECHANIC Screening breast examination ANTI HIV 1/2 Routine 05/23/2008 8:55 AM CDT Routine General Medical Examination at a Health Care Facility from Last 3 Months or Most Recently Relevant to Health Maintenance Results * (ABNORMAL) LIPID PANEL W REFLEX MEASURED LDL (08/08/2017 9:32 AM PRODUCTION MECHANIC) CHOLESTEROL,TOTAL 201(H) 100 - 199 mg/dL 08/08/2017 4:17 PM PRODUCTION MECHANIC [facility] [employer] [facility] TRIGLYCERIDES 136 <150 mg/dL 08/08/2017 4:17 PM PRODUCTION MECHANIC [facility] HDL CHOLESTEROL 53 >40 mg/dL 7 4:17 PM PRODUCTION MECHANIC [facility] NON-HDL CHOLESTEROL 148(H) <145 mg/dl 08/08/2017 4:17 PM PRODUCTION MECHANIC [facility] CHOL/HDL RATIO 3.79 <4.50 08/08/2017 4:17 PM PRODUCTION MECHANIC [facility] LDL CHOLESTEROL 121 <=130 mg/dL 08/08/2017 4:17 PM PRODUCTION MECHANIC [facility] PROVIDER ORDERED STATUS RANDOM 08/08/2017 4:17 PM PRODUCTION MECHANIC [facility] Blood BLOOD SPECIMEN / Unknown Venipuncture / Unknown 08/08/2017 9:32 AM PRODUCTION MECHANIC 08/08/2017 9:32 AM PRODUCTION MECHANIC Bonnie Wade NP CHEMISTRY [facility] [address] [place] [address], * XR MAMMO BILAT SCREENING (08/08/2017 8:35 AM PRODUCTION MECHANIC) Anatomical Region Laterality Modality BREASTS, Breast Left, Breast Right Bilateral Mammography Impressions 08/08/2017 12:20 PM PRODUCTION MECHANIC There is no radiographic evidence for malignancy. Recommend annual mammograms. A lay language report of this examination will be provided to the patient. MAMMOGRAM ASSESSMENT: ACR 2 Benign Narrative 08/08/2017 12:20 PM PRODUCTION MECHANIC XR MAMMO BILAT SCREENING [[id number]] CLINICAL HISTORY: This is an asymptomatic 52 y.o. patient. INDICATION FOR EXAM: Mammogram Screening. TECHNIQUE: CC & MLO views were obtained. This digital study was evaluated with the assistance of Computer-Aided Detection. COMPARISON FILMS: Yes 08/02/16 [facility] 07/21/15 [facility] FINDINGS: Mammographically, the breast tissue has scattered fibroglandular densities. No suspicious masses or microcalcifications. Benign appearing calcifications within both breasts. Bonnie Wade NP MAMMO * ANTI HIV 1/2 (05/23/2008 8:55 AM CDT) ANTI HIV 1/2 Non-reacti ve [facility] Blood specimen (specimen) BLOOD SPECIMEN / Unknown 05/23/2008 8:55 AM CDT 05/23/2008 8:54 AM CDT Bonnie Wade NP SEND OUTS [facility] INTERNAL ZIP [id number] [place] [phone] from Last 3 Months or Most Recently Relevant to Health Maintenance Care Teams Newsstand Vendor Relationship Specialty Start Date End Date Tigre Brown Phys Of PCP - General 01/17/19 Julio Brown MD Surgery - General 08/08/17
--- OUTSIDE RECORDS SUMMARY | 2024-08-06 19:34 | XMS_ITS | Encounter Summary ---
Author Organization [facility] Address [address] [place] [address] Care Team Providers Care Neighborhood Conservation Officer Name Role Phone Elsewhere, Pcp Primary Care Provider Unavailabl e Reason for Referral * MRI/CAT/PET Scan (Routine) - Closed Specialty Diagnoses / Procedures Referred By Beba mcgrath Referred To Contact Radiology Diagnoses Other Benign Mammary Dysplasias (Atypical Ductal Hyperplasia) Of Left Breast Cancer Breast Family History Procedures MR Breast Bilateral without and with IV Contrast ND MRI BREAST WOW CNTRST W/CAD Yamini Casper M.D. [address] [place] [address] Phone: tel: fax: [facility] Referral ID Status Reason Start Date Expiration Date Visits Re quested Visits Authorized [id number] Closed 04/16/2024 04/16/2025 1 1 Reason for Visit * MRI/CAT/PET Scan (Routine) - Closed Specialty Diagnoses / Procedures Referred By Contlane mcgrath Referred To Contact Radiology Diagnoses Other Benign Mammary Dysplasias (Atypical Ductal Hyperplasia) Of Left Breast Cancer Breast Family History Procedures MR Breast Bilateral without and with IV Contrast ND MRI BREAST WOW CNTRST W/CAD Yamini Casper M.D. [address] [place] [address] Phone: tel: fax: [facility] Referral ID Status Reason Start Date Expiration Date Visits Re quested Visits Authorized [id number] Closed 04/16/2024 04/16/2025 1 1 Encounter Details Date Type Department Care Team (Latest Contact Info) Description 06/06/2024 7:17 PM CDT - 06/06/2024 11:59 PM CDT Hospital Encounter Department of Radiology, [facility], in [place], [place] [address] [place] [address] Yamini Raines M.D. [address] [place] [address] Other Benign Mammary Dysplasias (Atypical Ductal Hyperplasia) Of Left Breast; Cancer Breast Family History Discharge Disposition: Home or Self Care Social History Tobacco Use Types Packs/Day Years Used Date Smoking Tobacco: Never Passive Smoke Exposure: Past Smokeless Tobacco: Never Passive Exposure Comments:ch ildhood aduthood x2 weekly Alcohol Use Standard Drinks/Week Comments Yes 0 (1 standard drink = 0.6 oz pur e alcohol) rare [facility] Utilities Answer Date Recorded In the past 12 months has th [employer], gas, oil, or water [email or web address] threatened to shut off services in your [...] your living situation today? 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 08/08/2017 capsicum, cayenne, 450 mg capsule Take by mouth daily. cholecalciferol, vitamin D3, 25 mcg (1,000 Unit) tablet Take 1 tablet by mouth daily. 04/20/2020 DOCOSAHEXAENOIC ACID ORAL Take 1 capsule by mouth daily. 04/20/2020 glucosamine-chond roitin 500-400 mg per capsule Take 1 capsule by mouth daily. 08/08/2017 hydroCHLOROthiazi de (HydroDiuril) 25 mg tablet Take 1 tablet by mouth daily. 11/14/2018 ibuprofen 200 mg tablet Take 200 mg by mouth every 6 (six) hours as needed for pain. lisinopriL 10 mg tablet Take 1 tablet by mouth daily. 11/14/2018 MAGNESIUM CITRATE ORAL Take 100 mg by mouth once. tamoxifen (Nolvadex) 20 mg tablet Take 1 tablet (20 mg total) by mouth daily. Swallow whole; do not split, chew, or crush. Take with or without food. 90 tablet 3 04/16/2024 documented as of this encounter Plan of Treatment Not on file documented as of this encounter Procedures Procedure Name Priority Date/Time Associated Diagnosis Comments MR BREAST BILATERAL WITHOUT AND WITH IV CONTRAST RAD - Routine (most inpatients and all outpatients) 06/06/2024 8:06 PM CDT Other Benign Mammary Dysplasias (Atypical Ductal Hyperplasia) Of Left Breast Cancer Breast Family History documented in this encounter Results * MR Breast Bilateral without and [...] ASSESSMENT: BI-RADS: 2: Benign. Yamini Raines M.D. G MRI PROCEDURES Final R esult documented in this encounter Visit Diagnoses Diagnosis Other Benign Mammary Dysplasias (Atypical Ductal Hyperplasia) Of Left Breast Cancer Breast Family History documented in this encounter Administered Medications Inactive Administered Medications - up to 3 most recent administrations Medication Order MAR Action Action Date Dose Rate Site gadobutrol injection 0.01-30 mL (Gadavist) 0.01-30 mL, intravenous, Once in imaging, contrast, Starting on Marcela 06/06/24 at 1938, For 1 dose, Imaging Protocol Orders, Dose per Radiant Medication Guidelines Intrathecal doses greater than 0.25 mL not recommended. Given 06/06/2024 7:56 PM CDT 11 mL sodium chloride (PF) 0.9 % injection 1-100 mL 1-100 mL, intravenous, Once, On Marcela 06/06/24 at 2000, For 1 dose, Imaging Protocol Orders, Dose per Radiant Medication Guidelines Given 06/06/2024 7:57 PM CDT 20 mL documented in this encounter Care Teams Neighborhood Conservation Officer Relationship Specialty Start Date End Date Elsewhere, Pcp PCP - General Internal Medicine 04/04/24 07/11/24 documented as of this encounter
== END 2024-08-05 11:21 | disposition home or self-care (01) ==
LOC: NFLDREF 08-06 19:32
PROVIDERS: PCP Family Medicine; Referring Provider Family Medicine; Visit Provider Family Medicine
DX: R79.89 Other specified abnormal findings of blood chemistry (principal); I10 Essential (primary) hypertension; E78.5 Hyperlipidemia, unspecified; E55.9 Vitamin D deficiency, unspecified; R53.83 Other fatigue; R00.2 Palpitations
CPT/HCPCS: 80053; 80061; 82306; 82607; 84443

== ENCOUNTER 2024-08-21 11:40 | Outpatient (CLI) | payer OTHER, SELFPAY | END 2024-08-21 11:41 | disposition home or self-care (01) | LOC: NFLDREF 08-22 05:14 | PROVIDERS: PCP Family Medicine; Referring Provider Family Medicine; Visit Provider Family Medicine | DX: I10 Essential (primary) hypertension (principal) | CPT/HCPCS: 80048 ==

== ENCOUNTER 2025-01-30 09:47 | Outpatient (CLI) | payer OTHER, SELFPAY | END 2025-01-30 09:48 | disposition home or self-care (01) | LOC: NFLDREF 09:50 | PROVIDERS: PCP Family Medicine; Visit Provider Family Medicine | DX: I10 Essential (primary) hypertension (principal); K76.0 Fatty (change of) liver, not elsewhere classified; R79.89 Other specified abnormal findings of blood chemistry | CPT/HCPCS: 80053 ==

== ENCOUNTER 2025-08-12 08:05 | Outpatient (CLI) | payer OTHER, SELFPAY | END 2025-08-12 08:06 | disposition home or self-care (01) | LOC: NFLDREF 08-17 20:52 | PROVIDERS: PCP Family Medicine; Referring Provider Family Medicine; Visit Provider Family Medicine | DX: E78.5 Hyperlipidemia, unspecified (principal); E55.9 Vitamin D deficiency, unspecified; M85.80 Other specified disorders of bone density and structure, unspecified site; K76.0 Fatty (change of) liver, not elsewhere classified | CPT/HCPCS: 80053; 80061; 82306 ==